=== PATIENT | female | born 1955 | race Caucasian/White ===

== ENCOUNTER → 2023-07-19 07:38 | Outpatient (REF) | payer MEDICARE, OTHER, SELFPAY | LOC: PAVMRI 07:38 | PROVIDERS: ATTENDING PHYSICIAN Psychiatry & Neurology Neurology; FAMILY PHYSICIAN Family Medicine | DX: R42 Dizziness and giddiness (principal) | CPT/HCPCS: 70553; A9575 ==

== ENCOUNTER 2023-07-24 11:53 | Emergency (ER) | payer MEDICARE, OTHER, SELFPAY ==
[2023-07-24 11:58] VITALS: BP 136/67
[2023-07-24 13:04] LABS: % Basophils 0.7 % (0-2); % Eosinophils 2.2 % (0-6); % Immature Granulocytes 0.1 % (0-0.5); % Lymphocytes 24.6 % (20.5-51.1); % Monocytes 9.2 % (1.7-9.3); % Neutrophils 63.2 % (42.2-75.2); Absolute Basophils 0.1 10^3/uL (0-0.2); Absolute Eosinophils 0.2 10^3/uL (0-0.7); Absolute Lymphocytes 1.8 10^3/uL (1.2-3.4); Absolute Monocytes 0.7 10^3/uL (0.1-0.6); Absolute Neutrophils 4.7 10^3/uL (1.4-6.5); Hematocrit 41.2 % (37.0-47.0); Hemoglobin 13.7 g/dL (12.0-16.0); Mean Corp Hgb Conc. 33.3 g/dL (33.0-37.0); Mean Corpuscular Hgb 29.4 pg (27.0-31.0); Mean Corpuscular Volume 88.4 fL (81.0-99.0); Mean Platelet Volume 9.1 fL (7.4-10.4); Nucleated Red Blood Cells % 0 %; Platelet Count 275 10^3/uL (130-400); Red Blood Cell Count 4.66 10^6/uL (4.20-5.40); White Blood Cell Count 7.4 10^3/uL (4.8-10.8)
[2023-07-24 13:13] LABS: Blood Urea Nitrogen 15 mg/dl (7-17); Calcium 9.4 mg/dl (8.4-10.2); Carbon Dioxide 28 mmol/L (22-30); Chloride 107 mmol/L (98-107); Glucose 95 mg/dl (70-99); Potassium 4.2 mmol/L (3.5-5.1); Sodium 141 mmol/L (135-145); eGFR > 60.00
[2023-07-24 13:33] LABS: NT-proBNP 42.5 pg/ml; Troponin I < 0.012 ng/ml
--- NOTE | 2023-07-24 14:18 | ED.GENMED ---
History of Present Illness
General
Chief Complaint: Chest Pain
Source: patient
Exam Limitations: none
Time Seen by Provider: 07/24/23 12:15
Travel History
Have you had any contact with someone who has COVID-19?: No
Do you have any symptoms of coronavirus? Fever > 100 degrees, chills, cough, shortness of breath, sore throat, loss of taste or smell, muscle aches, or headache?: No
History of Present Illness
History of Present Illness:
68-year-old female complaining of back pain chest pressure. Back pain started about a week ago. Was initially intermittent across her shoulder blades. 3 days ago back pain became constant. It has been constant and stable since then. She also
developed upper anterior diffuse chest pain 2 days ago. Nonpleuritic 9 shearing. No cough no fever. Also at times feels like her heart is racing.
Past History
Past History
ED Past Medical History: Hypercholesterolemia and Other (M�ni�re's disease)
ED Past Surgical History: Orthopedic
Social History
Tobacco: Former smoker
Alcohol: None
Personal:
Living: with family
Employment: Employed
Family History
Family History: Adopted
Review of Systems
Review of Systems
All Other Systems: Not applicable
Constitutional: Denies fever
Respiratory: Reports no symptoms
: Reports no symptoms
Phy Exam
Physical Exam
Physical Exam:
GENERAL: Alert and oriented in no apparent distress
EYE: Orbits normal.
NECK: Supple
ENT: Pharynx without erythema
CARDIAC: Regular rate and rhythm without any obvious murmurs.
LUNGS: Clear breath sounds,normal
ABDOMEN: Soft, without focal tenderness or distention
NEUROLOGICAL: Alert and oriented , grossly non-focal
SKIN: Warm and dry, no rash or lesion, no discoloration, skin intact.
MUSCULOSKELETAL: No edema,no deformity.Good color
PSYCH: Normal and appropriate interaction.
Scores
Heart Score for Chest Pain Patients
STEMI patient?: No
History: Slightly or Non-Suspicious
ECG: Normal
Age: >/= 65 years
Risk Factors: 1 or 2 Risk Factors
Troponin: </= Normal Limit
Heart Score for Chest Pain Patients: 3
Heart Score Risk: 2.5% MACE over next 6 weeks
Course
Orders/Labs/Results
Orders:
Orders
07/24/23 11:55
Electrocardiogram (*1) Urgent
Reason for Study: Chest Pain
EKG- Treatment ONCE
07/24/23 12:38
Cardiac Monitoring- Treatment ONCE
IV Insert/Care/Rem.- Treatment PRN
Pulse Ox/cont/shift [RESP] Stat
Quantity: 1
07/24/23 12:50
CT Chest Pe Study Urgent
Comment:
Reason For Exam: cp/upper back pain/sob
07/24/23 12:52
Basic Metabolic Panel Urgent
Complete Blood Count/With Diff Urgent
NT-proBNP Urgent
Troponin I Urgent
Abnormal Lab Results
07/24/23
12:52
Absolute Monos (auto) 0.7 H 10^3/uL
(0.1-0.6)
07/24/23 12:52
07/24/23 12:52
Vital Signs
Initial and Last Documented VS:
Initial Vital Signs
Temp Pulse Resp BP Pulse Ox
98.2 F 85 20 136/67 99
07/24/23 11:58 07/24/23 11:58 07/24/23 11:58 07/24/23 11:58 07/24/23 11:58
Last Documented Vital Signs
Temp Pulse Resp BP Pulse Ox
98.2 F 85 20 136/67 99
07/24/23 11:58 07/24/23 11:58 07/24/23 11:58 07/24/23 11:58 07/24/23 11:58
MDM/Problems Addressed
Differential Diagnosis Includes:
Patient with continual upper back and upper chest pain for 2 to 3 days. Not exertional. Nonpleuritic. EKG is stable. Troponin is negative. I do not feel this is cardiac in etiology given the continual symptoms for days. Repeat troponin not
warranted. Patient is not in heart failure. Chest CT pending. If all stable can be discharged to follow-up. As for the palpitations patient noted she was feeling these palpitations while we were in the room and patient was in a normal sinus
rhythm with no abnormalities during this.
*Critical Care Note
Total Time (30-74mins, 75-104mins- exclusive of procedures): Not Applicable
Data Reviewed
Review of Other/Old Records Reveals: Labs, Records and Testing
Update Note
Update Note:
Workup is unremarkable. Patient is stable. She had 2 to 3 days of continuous symptoms with a negative workup. Discharged to follow-up. Patient had a consult with [facility] cardiology in 2011.
ED Attending Note
-
Portions of this chart may have been created with voice recognition software.� Occasional wrong word or��sound alike� substitutions may have occurred due to the inherent limitations of voice recognition software.
Discharge Plan
Departure
Patient Disposition: Home (Routine Discharge)
Date of Disposition: 07/24/23
Time of Disposition: 15:43
Patient with high blood pressure during this ER visit?: Yes
Discharge Problem:
Chest pain/upper back pain, Palpitations
Instructions: Palpitations ED, Chest Pain CBC Follow Up, BLOOD PRESSURE
Prescriptions:
No Action
simvastatin 10 MG tablet
10 mg PO QPM
alprazolam 0.25 MG tablet
0.25 mg PO TID
meclizine 25 MG tablet
25 mg PO PRN PRN (Reason: dizziness)
mupirocin 1 GRAM ointment
1 applic intranasal BID
sennosides [senna] 1 TABLET tablet
2 tab PO BID 0RF
meloxicam 15 MG tablet
15 mg PO DAILY Qty: 30 0RF
Rx Instructions:
take with food
do not take within 2hours of ASA
magnesium hydroxide 30 ML suspension
30 ml PO DAILYPRN PRN (Reason: constipation) 0RF
aspirin 325 MG tablet,delayed release (DR/EC)
325 mg PO DAILY 0RF
docusate sodium 100 MG capsule
100 mg PO BID 0RF
famotidine 20 MG tablet
20 mg PO HS Qty: 30 0RF
Rx Instructions:
while on ASA and Meloxicam
tramadol 50 MG tablet
50 mg PO Q4H Qty: 60 0RF
Rx Instructions:
1-2 tabs po q4-6 hours prn
Referrals:
Tonny Rhodes MD [Family Provider] -
Interventions
Interventions:
*Risk Screen - Suicide Last Done: 07/24/23 11:58
*General Assessment Last Done: 07/24/23 11:58
*Neglect/Abuse Screening Last Done: 07/24/23 11:58
ED- Cardiac Assessment Last Done: 07/24/23 13:31
Discharge Date and Time
Print Language: GREEK
[2023-07-24 14:49] VITALS: BP 98/64
[2023-07-24 14:50] VITALS: BMI 36.1
[2023-07-24 15:00] VITALS: BP 117/62
== END 2023-07-24 16:25 | disposition home or self-care (01) ==
LOC: EMR 11:53
PROVIDERS: EMERGENCY PHYSICIAN Emergency Medicine; FAMILY PHYSICIAN Family Medicine
DX: R00.2 Palpitations (principal); M54.6 Pain in thoracic spine; R07.89 Other chest pain; R03.0 Elevated blood-pressure reading, without diagnosis of hypertension; E78.00 Pure hypercholesterolemia, unspecified; Z87.891 Personal history of nicotine dependence; Z79.82 Long term (current) use of aspirin; Z91.040 Latex allergy status; Z88.5 Allergy status to narcotic agent; Z88.2 Allergy status to sulfonamides; Z88.8 Allergy status to other drugs, medicaments and biological substances; Z91.018 Allergy to other foods
CPT/HCPCS: 99285; 94760; 71275; 80048; 83880; 84484; 85025; 93005; Q9967

== ENCOUNTER → 2023-08-16 14:50 | Outpatient (REF) | payer MEDICARE, OTHER, SELFPAY ==
--- NOTE | 2023-08-16 15:45 | CARDSERVLU ---
Echocardiogram with Lumason completed after protocol screening completed. Allergies verified.
Patent IV site: _Rt hand__
IV site flushed with 0.9% NaCl pre and post administration.
Diluted bolus method utilized to enhance visualization of ventricular story.
Total volume given: _2.0___ mL
Patient tolerated all procedures well without complications.
#22 kenya placed Rt hand. Lumason given. INT d/c'd. pressure held. no bleeding or hematoma noted.
== END ==
LOC: RCS 14:50
PROVIDERS: ATTENDING PHYSICIAN Internal Medicine Cardiovascular Disease; FAMILY PHYSICIAN Family Medicine
DX: R07.89 Other chest pain (principal); M54.9 Dorsalgia, unspecified; R06.02 Shortness of breath; E66.8 Other obesity
CPT/HCPCS: 93306; Q9950

== ENCOUNTER → 2023-08-20 11:22 | Outpatient (REF) | payer MEDICARE, OTHER, SELFPAY | LOC: DHCBC/DCA 11:22 | PROVIDERS: ATTENDING PHYSICIAN Internal Medicine Cardiovascular Disease; FAMILY PHYSICIAN Family Medicine | DX: R07.89 Other chest pain (principal); M54.9 Dorsalgia, unspecified; R06.02 Shortness of breath; E66.8 Other obesity; E78.00 Pure hypercholesterolemia, unspecified | CPT/HCPCS: 78452; 93017; A9500; J2785 ==

== ENCOUNTER → 2024-02-18 07:29 | Outpatient (REF) | payer MEDICARE, OTHER, SELFPAY | LOC: RAD 07:29 | PROVIDERS: ATTENDING PHYSICIAN Internal Medicine Hematology & Oncology; FAMILY PHYSICIAN Family Medicine | DX: R77.8 Other specified abnormalities of plasma proteins (principal) | CPT/HCPCS: 76700 ==

== ENCOUNTER → 2024-07-01 09:49 | Outpatient (REF) | payer MEDICARE, OTHER, SELFPAY ==
[2024-07-01 12:07] LABS: Erythrocyte Sed Rate 18 mm/hour (0-20)
== END ==
LOC: HWRAD 09:49
PROVIDERS: ATTENDING PHYSICIAN Orthopaedic Surgery; FAMILY PHYSICIAN Family Medicine
DX: M25.551 Pain in right hip (principal)
CPT/HCPCS: 36415; 73700; 85652; 86140